=== PATIENT | male | born 1980 | race Hispanic/Latino ===

== ENCOUNTER 2019-06-24 18:14 | Emergency (ER) | payer OTHER ==
[2019-06-24] MEDS ORDERED: ONDANSETRON HCL 4 MG/2 ML VIAL ONE ×2 (19:24→23:12)
[2019-06-24 19:46] LABS: BASOPHILS % (AUTO) 0.1 % (0.0-5.0); HEMATOCRIT 38.5 % (42-54); LYMPHOCYTES % (AUTO) 6.2 % (21.0-51.0); MEAN CORPUSCULAR HEMOGLOBIN 27.9 pg (27.0-33.0); MEAN CORPUSCULAR HGB CONC 33.5 g/dL (32.0-36.0); MEAN CORPUSCULAR VOLUME 83.2 fL (79-99); MONOCYTES % (AUTO) 1.5 % (3.0-13.0); NEUTROPHILS % (AUTO) 91.8 % (40.0-77.0); PLATELET COUNT (AUTO) 370 K/uL (130-400); RED BLOOD CELL COUNT(AUTO) 4.63 MIL/uL (4.50-6.20); RED CELL DISTRIBUTION WIDTH 14.5 % (11.0-15.5); WHITE BLOOD COUNT (AUTO) 13.2 K/uL (4.8-10.8)
[2019-06-24 20:16] LABS: ALBUMIN 2.5 g/dL (3.5-5.0); BILIRUBIN,DIRECT 0.1 mg/dL (0.0-0.3); BILIRUBIN,TOTAL 0.4 mg/dL (0.2-1.0); CREATININE 1.6 mg/dL (0.5-1.5); POTASSIUM 4.6 mmol/L (3.5-5.1); TOTAL PROTEIN, SERUM 6.9 g/dL (6.0-8.3)
[2019-06-24] MEDS ORDERED: INSULIN HUMULIN R 100 UNIT/ML 3ML ONE (20:58)
[2019-06-24 21:49] LABS: ABG OXYGEN SATURATION 39.4 % (95.0-99.0); BASE EXCESS,VENOUS BLOOD GAS -2.7 (-2.0-3.0); HCO3,VENOUS BLOOD GAS 23.5 (21.0-28.0); PCO2,VENOUS BLOOD GAS 46 (35-48); PH,VENOUS BLOOD GAS 7.328 (7.350-7.450)
== END 2019-06-24 23:44 | disposition home or self-care (01) ==
LOC: EDH 18:14
DX: E11.65 Type 2 diabetes mellitus with hyperglycemia (principal); E86.0 Dehydration; I10 Essential (primary) hypertension; Z79.899 Other long term (current) drug therapy
CPT/HCPCS: 36415; 36600; 80048; 80076; 82550; 82803; 82948; 83690; 84484; 85025; 93005; 96374; 96375; 96376; 99284; J1815; J2405 ×2

== ENCOUNTER 2019-06-26 12:45 | Emergency (ER) | payer SELFPAY ==
[2019-06-26 13:07] LABS: BASOPHILS % (AUTO) 0.2 % (0.0-5.0); EOSINOPHILS % (AUTO) 0.1 % (0.0-8.0); HEMATOCRIT 36.6 % (42-54); LYMPHOCYTES % (AUTO) 18.2 % (21.0-51.0); MEAN CORPUSCULAR HGB CONC 33.6 g/dL (32.0-36.0); MEAN CORPUSCULAR VOLUME 83.2 fL (79-99); MONOCYTES % (AUTO) 3.9 % (3.0-13.0); NEUTROPHILS % (AUTO) 77.5 % (40.0-77.0); PLATELET COUNT (AUTO) 372 K/uL (130-400); RED CELL DISTRIBUTION WIDTH 13.8 % (11.0-15.5); WHITE BLOOD COUNT (AUTO) 10.1 K/uL (4.8-10.8)
[2019-06-26 13:16] LABS: ALBUMIN 1.9 g/dL (3.5-5.0); BILIRUBIN,TOTAL 0.3 mg/dL (0.2-1.0); CREATININE 1.4 mg/dL (0.5-1.5); POTASSIUM 4.1 mmol/L (3.5-5.1); TOTAL PROTEIN, SERUM 6.3 g/dL (6.0-8.3)
[2019-06-26] MEDS ORDERED: ACETAMINOPHEN EXTRA STRENGTH 500 MG TABLET ONE (13:21)
[2019-06-26] MEDS ORDERED: INSULIN HUMULIN R 100 UNIT/ML 3ML ONE (13:22)
== END 2019-06-26 19:41 | disposition home or self-care (01) ==
LOC: EDH 12:45
DX: E11.65 Type 2 diabetes mellitus with hyperglycemia (principal); R53.1 Weakness; I10 Essential (primary) hypertension; Z79.899 Other long term (current) drug therapy; Z87.891 Personal history of nicotine dependence
CPT/HCPCS: 36415; 80053; 82948 ×2; 85025; 96361; 96374; 99285; J1815

== ENCOUNTER → 2020-07-10 | Outpatient (CLI) | payer OTHER | END | disposition home or self-care (01) | LOC: OIH 08:26 | PROVIDERS: ATTEND Family Medicine | DX: M25.78 Osteophyte, vertebrae (principal); M47.815 Spondylosis without myelopathy or radiculopathy, thoracolumbar region | CPT/HCPCS: 72100 ==